=== PATIENT | female | born 1970 ===

== ENCOUNTER 2018-05-11 14:51 | Emergency (ER) | payer MEDICAID ==
[2018-05-11 14:59] VITALS: BP 144/94; PULSE 85; RESP 18; TEMP 98.2; O2SAT 100
--- NOTE | 2018-05-11 16:06 | C.PDOC ---
History Of Present Illness 47 year old female patient presents to the ER with c/o neck pain that radiates to the left shoulder, arm and thumb for x9 days. Patient states she had low back pain too and received an MRI. Patient reports her PMD also prescribed her Flexeril and naproxen. Patient states her whole arm and hand, especially her thumb feels tingly. Patient states she cannot sleep due to the pain. Patient has FROM and sensation. Denies weakness, numbness and trauma. Time Seen by Provider: 05/11/18 15:13 Chief Complaint (Nursing): Upper Extremity Problem/Injury History Per: Patient History/Exam Limitations: no limitations Onset/Duration Of Symptoms: Days (x9) Current Symptoms Are (Timing): Still Present Past Medical History Reviewed: Historical Data, Nursing Documentation, Vital Signs Vital Signs: Last Vital Signs Temp 98.2 F 05/11/18 14:56 Pulse 85 05/11/18 14:56 Resp 18 05/11/18 14:56 BP 144/94 H 05/11/18 14:56 Pulse Ox 100 05/11/18 20:41 Family History: States: No Known Family Hx - Social History Hx Alcohol Use: Yes Hx Substance Use: Yes - Immunization History Hx Tetanus Toxoid Vaccination: No Hx Influenza Vaccination: No Hx Pneumococcal Vaccination: No Review Of Systems Except As Marked, All Systems Reviewed And Found Negative. Constitutional: Negative for: Other (recent trauma on neck ) Musculoskeletal: Positive for: Neck Pain (feels tingly ), Arm Pain (left radiated from neck; tingly ), Back Pain, Hand Pain (thumb; radiated from neck) Neurological: Negative for: Weakness, Numbness Physical Exam - Physical Exam Appears: Well, Non-toxic, In Acute Distress (mild) Skin: Normal Color, Warm, Dry Head: Atraumatic, Normacephalic Eye(s): bilateral: Normal Inspection Neck: Decreased ROM (due to the pain with head movement to the ipsi lateral side ), Trachea Midline, No Trachea Deviated, No Midline Cervical Tenderness, No Paracervical Tenderness Chest: Symmetrical, No Deformity Cardiovascular: Rhythm Regular Respiratory: Normal Breath Sounds, No Rales, No Rhonchi, No Wheezing Extremity: Normal ROM, No Tenderness, Capillary Refill (<2 sec), No Deformity, No Swelling Pulses: Left Radial: Normal, Right Radial: Normal Neurological/Psych: Oriented x3, Normal Speech, Normal Cognition, Normal Motor, Normal Sensation, Normal Reflexes Gait: Steady ED Course And Treatment O2 Sat by Pulse Oximetry: 100 (RA) Pulse Ox Interpretation: Normal - Other Rad XR cervical spine X-Ray: Read By Radiologist Interpretation: Accession No. : [id number]. Patient Name / ID : KAYLI FLYNN / [id number]. Exam Date : 05/11/2018 16:09:23 ( Approved ). Study Comment : Sex / Age : F / 47Y. Creator : Isi Ocasio. Dictator : Abhay Aviles MD. Dock Supervisor : Fire Battalion Chief : Abhay Aviles MD. Approver2 : Report Date : 05/11/2018 16:21:07. My Comment : . Date of service: 05/11/2018. PROCEDURE: Cervical Spine Radiographs. HISTORY: Pain. COMPARISON: None. FINDINGS: BONES: Alignment maintained. No fracture. Dens Intact. Straightening of the cervical spine which could be due to muscle spasm. DISC SPACES: Mild degenerative changes associated with mild narrowing of the intervertebral disc is spaces and small osteophyte formation. SOFT TISSUES: Normal. No prevertebral soft tissue swelling. OTHER FINDINGS: None. IMPRESSION: Straightening of the cervical spine which could be due to muscle spasm. Mild degenerative changes. Progress Note: Impression: neck pain that radiates to arm and hand. Plans: -- oxycodone. -- XR cervical spine. Reassess: Patient is resting comfortably. o neuro deficit. Patient is given soft collar and arm sling. Patient is discharged home and instructed to f/u with neurologist. Disposition - Disposition Referrals: Graham Álvarez MD [Staff Provider] - Tobias Ellis MD [Staff Provider] - Disposition: HOME/ ROUTINE Disposition Time: 17:09 Condition: STABLE Additional Instructions: Follow up with your PMD and Neurologist within 1-2 days. Return to ED if feel worse. Prescriptions: Gabapentin [Neurontin] 300 mg PO QPM #20 cap traMADol/Acetaminophen [Ultracet 325 MG-37.5 MG] 1 tab PO .Q4-6H #30 tab Instructions: Radiculopathy (DC) Forms: [employer] (Belarusian) - Clinical Impression Clinical Impression: Cervical radiculopathy - PA / ASSESSMENT DIRECTOR / Resident Statement / has reviewed & agrees with the documentation as recorded. - Scribe Statement The provider has reviewed the documentation as recorded by the Jaqueline Silver Do All medical record entries made by the Jaqueline were at my direction and personally dictated by me. I have reviewed the chart and agree that the record accurately reflects my personal performance of the history, physical exam, medical decision making, and the department course for this patient. I have also personally directed, reviewed, and agree with the discharge instructions and disposition.
[2018-05-11] MEDS ORDERED: Oxycodone/Acetaminophen 5/325 mg Tab PO STA (17:08)
[2018-05-11] MEDS ORDERED: Oxycodone/Acetaminophen 5/325 mg Tab ONE (17:12)
--- NOTE | 2018-05-11 17:48 | RAD ---
Date of service: 05/11/2018 PROCEDURE: Cervical Spine Radiographs. HISTORY: Pain. COMPARISON: None. FINDINGS: BONES: Alignment maintained. No fracture. Dens Intact. Straightening of the cervical spine which could be due to muscle spasm DISC SPACES: Mild degenerative changes associated with mild narrowing of the intervertebral disc is spaces and small osteophyte formation. SOFT TISSUES: Normal. No prevertebral soft tissue swelling. OTHER FINDINGS: None. IMPRESSION: Straightening of the cervical spine which could be due to muscle spasm. Mild degenerative changes.
== END 2018-05-11 17:18 | disposition home or self-care (01) ==
LOC: C.ER 14:51
DX: M54.12 Radiculopathy, cervical region (principal)